=== PATIENT | female | born 1960 | race Caucasian/White ===

== ENCOUNTER 2017-01-14 06:50 | Day surgery (SDC) | payer BC, OTHER ==
[2017-01-09 14:24] VITALS: BMI 37.1
[2017-01-14] MEDS ORDERED: LIDOCAINE HCL 2% (20ML MULTI-DOSE VIAL) NR ONE (08:04)
[2017-01-14] MEDS ORDERED: MIDAZOLAM HCL 2 MG/2 ML SINGLE DOSE VIAL ONE (08:05)
[2017-01-14] MEDS ORDERED: PROPOFOL 20 ML ONE ×2 (08:05)
--- NOTE | 2017-01-14 08:14 | HP ---
Satellite H - Chief Complaint Chief Complaint: right hand pain/numbness - Past Medical History Allergies/Adverse Reactions: Allergies Allergy/AdvReac Type Severity Reaction Status Date / Time codeine Allergy PALPITATION Verified 01/14/17 07:12 S SEAFOOD Allergy Severe SWELLING,IT Uncoded 01/14/17 07:12 SPEEDY - Current Medications Current Medications: Home Medications Medication Instructions Recorded Acetaminophen [Tylenol Extra 500 mg PO PRN PRN 05/22/15 Strength] Albuterol Sulfate Inhaler - 2 inh PO PRN PRN 05/22/15 [Ventolin HFA Inhaler -] Amlodipine/Valsartan [Exforge 1 tab PO DAILY 05/22/15 5-160 mg Tablet] Ascorbate Calcium [Vitamin C] 1,000 mg PO DAILY 05/22/15 Calcium Carbonate/Vitamin D3 1 each PO DAILY 05/22/15 [Calcium 600 with Vit D Tab] Levothyroxine [Synthroid -] 100 mcg PO DAILY 05/22/15 Mometasone/Formoterol [Dulera 100 2 inh IH BID 05/22/15 Mcg/5 Mcg Inhaler] Tramadol HCl/Acetaminophen 1 each PO Q6H #40 tablet MDD 4 01/14/17 [Tramadol-Acetaminophn 37.5-325] Satellite Physical Exam - Physical Examination Vital Signs: Vital Signs Period Temp Pulse Resp BP Sys/Lopez Pulse Ox Last 24 Hr 97.9 F 86 20 144/79 100 General Appearance: Well Nourished, Well Developed, Alert & Oriented x3 ENT: Clear Lung: Normal air movement Heart: Regular rate & rhythm Extremities: Other (right hand- + tinels, + phalens, EMG + cts) Neurological: Intact, Alert, Oriented Satellite Impression/Plan - Impression/Plan Impression: right cts Operative Procedure: right ctr Date to be Performed: 01/14/17
[2017-01-14] MEDS ORDERED: ceFAZolin SODIUM 1 GM VIAL ONE (08:20)
[2017-01-14] MEDS ORDERED: BUPIVACAINE HCL/PF (5 MG/ML) 30 ML VIAL IJ ONE (08:35)
[2017-01-14] MEDS ORDERED: LIDOCAINE HCL 1%, 10 MG/ML (20ML VIAL) IJ ONE (08:35)
[2017-01-14] MEDS ORDERED: KETOROLAC TROMETHAMINE 30 MG/1 ML VIAL ONE (08:50)
--- NOTE | 2017-01-14 08:58 | OP ---
Operative Note - Note: Operative Date: 01/14/17 Pre-Operative Diagnosis: right CTS Operation: right CTR, tenosynovectomy Post-Operative Diagnosis: Same as Pre-op Surgeon: Caden Parkinson Environmental Research Project Manager: David Stoddard Anesthesiologist/LINOTYPE MACHINIST APPRENTICE: Bibi Malcolm Anesthesia: General, Local, MAC Specimens Removed: tenosynovium Estimated Blood Loss (mls): 0 Drains, Volume Out (mls): 0 Blood Volume Replaced (mls): 0 Fluid Volume Replaced (mls): 500 Operative Report Dictated: Yes
[2017-01-14] MEDS ORDERED: BUPIVACAINE HCL/PF 0.5% (5MG/ML) 10 ML VIAL ONE (09:01)
[2017-01-14] MEDS ORDERED: ONDANSETRON 4 MG/2 ML VIAL IVPUSH PRN (09:01)
[2017-01-14] MEDS ORDERED: ACETAMINOPHEN 325 MG TABLET (FP) PO PRN (09:01)
[2017-01-14] MEDS ORDERED: LACTATED RINGERS SOLUTION 1,000 ML IV SCH (09:15)
--- NOTE | 2017-01-14 09:26 | SPEC ---
DATE OF OPERATION: DATE OF DICTATION: 01/14/2017 PREOPERATIVE DIAGNOSIS: Right carpal tunnel syndrome. POSTOPERATIVE DIAGNOSIS: Right carpal tunnel syndrome. OPERATION: Right carpal tunnel release and tenosynovectomy. SURGEON: Caden Parkinson MD SYSTEMS LEAD: David Stoddard MD ANESTHESIOLOGIST: Bibi Malcolm MD ANESTHESIA: MAC, local injection with 8 mL of 0.5% Marcaine and 1% lidocaine mix. DRAINS: None. COMPLICATIONS: None. SPECIMENS: Tenosynovium, right wrist. BLOOD LOSS: None. BLOOD GIVEN: None. FLUID REPLACEMENT: 500 mL of Plasmalyte. INDICATIONS: This patient is a 56-year-old female with a preoperative diagnosis of recurrent, severe right carpal tunnel syndrome. After understanding the potential risks, complications, alternatives, and benefits of surgery versus nonsurgical treatment, the patient elected to undergo this procedure. She understands she may not get complete relief of her symptoms. She will continue to improve for 6 months. She may not get complete relief of her numbness, weakness, and overall disability. DESCRIPTION OF PROCEDURE: The patient was brought to the operating room, peripheral IV placed and intravenous sedation was given. One gram of intravenous Ancef was given. MAC anesthesia was induced. A tourniquet was applied to the right upper arm and the right upper extremity was prepped and draped in sterile fashion. The entire case was done under 3.8 loupe magnification. A marking pen was utilized to parish out a longitudinal incision in an already existing skin crease. Next, 20 mL of 0.5% Marcaine mixed with 1% lidocaine was injected in and around the surgical incision. The right upper extremity was elevated, exsanguinated with an Esmarch bandage, and the tourniquet inflated to 250 mmHg. A No. 15 scalpel blade was utilized to cut down through the skin. Subcutaneous hemostasis was achieved with the bipolar cautery. Dissection was done through the superficial palmar fascia. Self-retaining retractors were placed into the wound. Under direct visualization, the transverse carpal ligament was transected with a No. 15 scalpel blade, exposing the median nerve and the contents of the carpal tunnel. The distal and proximal extents of the release were completed with a Littler scissors and checked with irrigation and my small finger. They were seen to be complete. Limited dissection was done on the radial side of the median nerve and more extensive dissection was done on the ulnar side of the median nerve. The patients nerve was seen to be quite compressed by epineurium and therefore a limited epineurotomy was performed. A Ragnell retractor was used to gently retract the median nerve in a radial direction. The patient had a lot of tenosynovitis and therefore a tenosynovectomy was performed off all 9 flexor tendons. This was passed off the field as tenosynovium right wrist. The floor of the carpal tunnel was checked. There were no abnormal masses or ganglion cysts. The area was copiously irrigated and washed out and closure begun. Undyed 4-0 Vicryl was used to close the deep dermal layer. Final skin reapproximation was done with horizontal mattress 4-0 nylon sutures. The area was then washed and dried, covered with Xeroform, 4 x 4's, fluffs between the fingers, Webril, and a 4-inch plaster roll was utilized to make a volar splint, which was then wrapped with Angeilca and Coban. The tourniquet was taken down after a total tourniquet time of 16 minutes. There were no complications during the case. The patient tolerated the procedure well and was brought to the ambulatory recovery room in stable condition. Matteo [id number]
[2017-01-14 09:49] VITALS: TEMP 97.7
[2017-01-14 10:53] VITALS: BP 143/72; PULSE 82
--- NOTE | 2017-01-15 14:23 | PATH ---
Surgical Pathology Report Patient Name: NAIMA GUZMAN [facility]. Rec. #: [id number] /Age/Gender: 1960 (Age: 56) / F Account: [id number] Location: [facility] Taken: 01/14/2017 Received: 01/14/2017 Reported: 01/15/2017 Physicians: David Stoddard M.D. Specimen(s) Received RIGHT TENOSYNOVIUM Clinical History Right carpal Tunnel Final Diagnosis SOFT TISSUE, RIGHT TENOSYNOVIUM, CARPAL TUNNEL RELEASE: BENIGN TENOSYNOVIAL FIBROCONNECTIVE TISSUE WITH MYXOID DEGENERATION. Electronically Signed Randy Goff M.D. Gross Description Received in formalin labeled "right tenosynovium" is a 1.7 x 1.6 x 0.3 cm aggregate of keith-yellow soft tissue fragments. The specimen is entirely submitted in one cassette. /01/14/201701/14/2017
== END 2017-01-14 10:55 | disposition home or self-care (01) ==
LOC: JASU-SURG 06:50
PROVIDERS: ATTEND Orthopaedic Surgery
PROC: 0LB50ZZ Excision of Right Lower Arm and Wrist Tendon, Open Approach (ICD-10-PCS; 2017-01-14)
PROC: 01N50ZZ Release Median Nerve, Open Approach (ICD-10-PCS; principal; 2017-01-14 08:00)
DX: G56.01 Carpal tunnel syndrome, right upper limb (principal); M65.841 Other synovitis and tenosynovitis, right hand
CPT/HCPCS: 88304-TC; 94760

== ENCOUNTER → 2019-07-13 | Day surgery (SDC) | payer BC, OTHER ==
[2019-07-12 14:01] VITALS: BMI 35.1
[~2019-07-13] MED LIST: ACETAMINOPHEN 1000 MG/100 ML VIAL (NON FORMULARY) IVPB ONE; BUPIVACAINE HCL/PF 0.5% (5MG/ML) 10 ML VIAL IJ ONE; DEXAMETHASONE SOD PHOSPHATE 4 MG/1 ML VIAL ONE; LACTATED RINGERS SOLUTION 1,000 ML IV SCH; LIDOCAINE 1%-EPI 1:100,000 30 ML MDV IJ ONE; MIDAZOLAM HCL 2 MG/2 ML SINGLE DOSE VIAL ONE; ONDANSETRON 4 MG/2 ML VIAL IVPUSH PRN; PROPOFOL 20 ML ONE; ceFAZolin SODIUM 1 GM VIAL IVPB ONE; ceFAZolin SODIUM 1 GM VIAL ONE
--- NOTE | 2019-07-13 10:06 | HP ---
Satellite H - Chief Complaint Chief Complaint: left knee pain - Past Medical History Allergies/Adverse Reactions: Allergies Allergy/AdvReac Type Severity Reaction Status Date / Time codeine Allergy PALPITATION Verified 07/12/19 14:01 S SEAFOOD Allergy Severe SWELLING,IT Uncoded 07/12/19 14:01 SPEEDY - Current Medications Current Medications: Home Medications Medication Instructions Recorded Albuterol Sulfate Inhaler - 2 inh PO PRN PRN 05/22/15 [Ventolin HFA Inhaler -] Amlodipine/Valsartan [Exforge 1 tab PO DAILY 05/22/15 5-160 mg Tablet] Calcium Carbonate/Vitamin D3 1 each PO DAILY 05/22/15 [Calcium 600 with Vit D Tab] Levothyroxine [Synthroid -] 100 mcg PO DAILY 05/22/15 Mometasone/Formoterol [Dulera 100 2 inh IH BID 05/22/15 Mcg/5 Mcg Inhaler] Ascorbic Acid [Vitamin C] 1,000 mg PO DAILY 07/12/19 Montelukast Na [Singulair -] 10 mg PO HS 07/12/19 Tramadol HCl 50 mg PO Q6H #20 tablet MDD 4 07/13/19 Satellite Physical Exam - Physical Examination General Appearance: Well Nourished, Well Developed, Alert & Oriented x3 ENT: Clear Lung: Normal air movement Extremities: Other (left knee- + swelling, +ttp, decr rom, + mcmurrays, nvi) Neurological: Intact, Alert, Oriented Satellite Impression/Plan - Impression/Plan Impression: left knee internal derangement Operative Procedure: left knee arthroscopy Date to be Performed: 07/13/19
--- NOTE | 2019-07-13 12:43 | OP ---
Operative Note - Note: Operative Date: 07/13/19 Pre-Operative Diagnosis: left knee pain, medial meniscus tear, OA Operation: left knee arthroscopy, partial medial meniscectomy, debridement chondroplasty Post-Operative Diagnosis: Same as Pre-op Surgeon: Caden Parkinson Pool Lifeguard: David Stoddard Anesthesiologist/WHARF TENDER HEAD: Letty Willett Anesthesia: General, Local Specimens Removed: shavings Estimated Blood Loss (mls): 0 Drains, Volume Out (mls): 0 Blood Volume Replaced (mls): 0 Fluid Volume Replaced (mls): 500 Operative Report Dictated: Yes
[2019-07-13 15:02] VITALS: BP 122/68; PULSE 88; TEMP 98.8
--- NOTE | 2019-07-14 11:33 | OP ---
DATE OF OPERATION: 07/13/2019 PREOPERATIVE DIAGNOSES: Left knee pain, medial meniscus tear, osteoarthritis. POSTOPERATIVE DIAGNOSES: Left knee pain, medial meniscus tear, osteoarthritis. PROCEDURE: Left knee arthroscopy, partial medial meniscectomy, and debridement chondroplasty. SURGEON: Caden Parkinson MD REMEDIATION CONSULTANT: Kiarra Stoddard MD ANESTHESIOLOGIST: Letty Willett, REF-DO ANESTHESIA: LMA anesthesia with local injection, 20 mL of 0.5% Marcaine. DRAINS: None. COMPLICATIONS: None. SPECIMEN: Arthroscopic shavings. BLOOD GIVEN: None. FLUID REPLACEMENT: Plasma-Lyte 500 mL. This patient is a 58-year-old female with preoperative diagnoses of left knee pain and medial meniscus tear and osteoarthritis. After understanding the potential risks, complications, alternatives, and benefits of surgery versus nonsurgical treatment, the patient elected to undergo this procedure. Patient was brought to the operating room, peripheral IV placed, IV sedation given. Two grams of IV Ancef were given. LMA anesthesia was induced. She was placed into the C-clamp leg dow with ample padding throughout including a Styrofoam ring. The patient had her left lower extremity prepped and draped in usual sterile fashion, elevated, exsanguinated with an Esmarch bandage. Tourniquet inflated to 275 mmHg. The superomedial outflow portal was established. A lateral portal was established. A diagnostic arthroscopy was performed. In the medial compartment, the patient had grade 1 chondromalacia of the medial femoral condyle and medial tibial plateau and had an obvious, large, radial flap tear of the posterior aspect of the body of the medial meniscus. Using a combination of the left biter, backbiter, and curved shaver, I did a partial medial meniscectomy. Photographs were taken before and after. Overall, the meniscus looked much improved after the partial meniscectomy. However, much of the hoop fibers were disrupted by the radial component of the tear. Next, our attention turned to the intercondylar notch. It looked good, though there was a lot of excessive synovitis and fibrotic Hoffa fat pad which was debrided. Next, the lateral compartment was directly visualized. This seemed to look good, although there was an area of grade 2/grade 3 chondromalacia about the size of a quarter on the lateral femoral condyle and grade 1/grade 2 changes on the lateral tibial plateau. This was gently debrided, but the lateral meniscus looked good. Next, our attention turned to the patellofemoral joint. Patient did have a lot of chondromalacial crab-meat effect on the undersurface of the patella. A gentle debridement chondroplasty was performed here as well, taking off all hanging fibers and loose edges. The femoral trochlea overall looked good and only had a small amount of grooving. Additional synovitis was removed from the suprapatellar pouch. The area was copiously irrigated and washed out. All instrumentation, excess saline, and debris were removed. The arthroscopy portals were closed with 3-0 nylon sutures. Next, 20 mL of 0.5% Marcaine were introduced into the joint. The area was then washed and dried, covered with Xeroform gauze, 4-x-4 gauze, Webril, and an Russell bandage. Tourniquet was taken down after total tourniquet time of 25 minutes. There were no complications during the case. The patient tolerated the procedure quite well and was brought to the ambulatory recovery room in stable condition. Kiarra Stoddard MD dictating for MD KIARRA Posadas M.D. [id number]
--- NOTE | 2019-07-15 19:10 | PATH ---
Surgical Pathology Report Patient Name: NAIMA GUZMAN [facility]. Rec. #: [id number] /Age/Gender: 1960 (Age: 58) / F Account: [id number] Location: [facility] Taken: 07/13/2019 Received: 07/13/2019 Reported: 07/15/2019 Physicians: David Stoddard M.D. Specimen(s) Received LEFT KNEE SHAVINGS Clinical History Internal derangement left knee Final Diagnosis LEFT KNEE SHAVINGS: FRAGMENTS OF FIBROADIPOSE TISSUE, CARTILAGE, AND SYNOVIAL TISSUE WITH FOCAL REACTIVE SYNOVIAL HYPERPLASIA AND FIBROSIS. Electronically Signed Elliott Aragon M.D. Gross Description Received in formalin, labeled "left knee shavings," is a 5.5 x 4.0 x 0.5 cm. aggregate of keith-yellow soft tissue fragments. A bilingual inside sales representative portion is submitted in one cassette. 07/14/2019 [facility]07/14/2019
== END | disposition home or self-care (01) ==
LOC: JASU-SURG 09:51
PROVIDERS: ATTEND Orthopaedic Surgery
PROC: 0SBD4ZZ Excision of Left Knee Joint, Percutaneous Endoscopic Approach (ICD-10-PCS; 2019-07-13)
PROC: 0SBD4ZZ Excision of Left Knee Joint, Percutaneous Endoscopic Approach (ICD-10-PCS; principal; 2019-07-13 11:30)
DX: S83.242A Other tear of medial meniscus, current injury, left knee, initial encounter (principal); M25.562 Pain in left knee; M17.12 Unilateral primary osteoarthritis, left knee; I10 Essential (primary) hypertension; E03.9 Hypothyroidism, unspecified; J45.30 Mild persistent asthma, uncomplicated; Z88.6 Allergy status to analgesic agent; Z91.013 Allergy to seafood; X58.XXXA Exposure to other specified factors, initial encounter; Y93.9 Activity, unspecified; Y92.9 Unspecified place or not applicable
CPT/HCPCS: 29881; G0289; 88304-TC; 94760; J0131